=== PATIENT | female | born 2000 | race Caucasian/White ===

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

== ENCOUNTER 2022-03-13 09:40 | Emergency (ER) | payer OTHER, SELFPAY ==
[2022-03-13 09:46] VITALS: BP 116/72; PULSE 90; RESP 16; TEMP 37.6; O2SAT 100
--- NOTE | 2022-03-13 10:10 | ED.URI ---
HPI - URI/Sore Throat General Chief Complaint: Upper Respiratory Infection Stated Complaint: Congestion/Ear Pain/Sore Throat Time Seen by Provider: 03/13/22 10:10 Source: patient and RN notes reviewed Mode of arrival: ambulatory Limitations: no limitations History of Present Illness HPI Narrative: 21-year-old female presented for complaint of left ear pain, sinus drainage and sore throat for 4 days. She has been on vacation swimming and snorkeling for 1 week. Prior. Denies associated fever. Endorses a history of frequent ear infections and tubes. MD elicited complaint: cough Related Data Allergies Allergy/AdvReac Type Severity Reaction Status Date / Time No Known Allergies Allergy Verified 03/13/22 10:01 Review of Systems Review of Systems: CONSTITUTIONAL: Denies malaise, chills, sweats, fever EYES: Denies visual changes, redness, or discharge ENT: Reports rhinorrhea, otalgia CARDIOVASCULAR: Denies chest pain, palpitations, edema RESPIRATORY: Reports post nasal drainage. Denies dyspnea GASTROINTESTINAL: Denies abdominal pain, nausea, vomiting, diarrhea SKIN: Denies rash or itching MUSCULOSKELETAL: Denies Myalgia NEUROLOGIC: Denies headache Exam Narrative: GENERAL: Ill-appearing, nontoxic EYES: conjunctivae clear ENT: Mucous membranes moist. Right TM pearly lal with normal light reflex, left canal erythematous, TM erythematous and bulging with dull light reflex, no tragal tenderness; Oropharynx erythematous without lesions or exudate NECK: Supple. Left anterior cervical lymphadenopathy CHEST: Clear to auscultation, breath sounds equal. HEART: Regular rate and rhythm. No murmur heard. SKIN: Warm, dry, no rash. NEURO: Alert and oriented x3. PSYCH: Normal mood and affect Course Course Emergency Course: Patient is aware of diagnosis, understands and agrees to treatment plan. Anticipatory guidance given. Patient agrees to follow-up as directed and is aware of reasons to seek care at the emergency department. Portions of this record may have been created with voice recognition software Level of Care: Express Care Visit Vital Signs Vital signs: Vital Signs Temperature 99.7 F H 03/13/22 09:46 Pulse Rate 90 03/13/22 09:46 Respiratory Rate 16 03/13/22 09:46 Blood Pressure 116/72 03/13/22 09:46 Pulse Oximetry 100 03/13/22 09:46 Oxygen Delivery Room Air 03/13/22 09:46 Temperature 99.7 F H 03/13/22 09:46 Pulse Rate 90 03/13/22 09:46 Respiratory Rate 16 03/13/22 09:46 Blood Pressure 116/72 03/13/22 09:46 Pulse Oximetry 100 03/13/22 09:46 Oxygen Delivery Room Air 03/13/22 09:46 reviewed MDM - URI/Sore Throat MDM Narrative Medical decision making narrative: Advised supportive measures for AOM and signs/symptoms to go to the ER. Pt is appropriate for outpt treatment and f/u. NKDA Differential Diagnosis Differential diagnosis: Likely upper respiratory infection, sinusitis and viral infection Discharge Plan Discharge Clinical Impression: Otitis media Qualifiers: Otitis media type: suppurative Chronicity: acute Laterality: left Recurrence: non-recurrent Spontaneous tympanic membrane rupture: without spontaneous rupture Qualified Code(s): H66.002 - Acute suppurative otitis media without spontaneous rupture of ear drum, left ear Patient Disposition: Home, Self-Care Condition: Stable Instructions: Antibiotic Form, Earache (ED) Additional Instructions: Take antibiotics as directed. Recommend antihistamine such as Benadryl, Zyrtec or Sarah for sinus congestion Flonase nasal spray, 1 spray in each nostril once daily until symptoms improve Symptomatic treatment includes: rest, fluids, and increase humidity of the air at home. Tylenol 1000mg every 8 hours as needed to reduce fever, pain Please schedule a follow-up visit with your personal physician for further evaluation and treatment within 3-5days. If your symptoms persist, change or worsen significantly, go
== END 2022-03-13 10:22 | disposition home or self-care (01) ==
PROVIDERS: Emergency Provider Nurse Practitioner Family
DX: H66.002 Acute suppurative otitis media without spontaneous rupture of ear drum, left ear (principal)
CPT/HCPCS: 99213; G0463

== ENCOUNTER 2023-08-06 08:20 | Emergency (ER) | payer OTHER, SELFPAY ==
--- NOTE | 2023-08-06 08:27 | ED.FEMALEGU ---
HPI - Female Genitourinary General Chief complaint: Urogenital-Female Stated complaint: Urinary Problem Source: patient and RN notes reviewed History of Present Illness HPI Narrative: 22 yo F presents to urgent care with complaints of burning with urination, cloudy urine and mid, lower, pelvic cramping. Pt states these symptoms have been going on since last night and she has had a UTI before with the same symptoms. Pt also reports a small lump to her right groin area, non-tender, that she states has been there for quite awhile and will vary in size. Denies any vaginal discharge, concern for STIs, flank pain, back pain, vomiting, fevers, or chills. Related Data Allergies Allergy/AdvReac Type Severity Reaction Status Date / Time No Known Allergies Allergy Verified 08/06/23 08:41 Review of Systems Review of Systems: CONSTITUTIONAL: Denies fever, chills, or sweats. EYES: Denies visual changes, redness, or discharge. ENT: Denies otalgia and sore throat CARDIOVASCULAR: Denies chest pain, palpitations, or edema. RESPIRATORY: Denies cough or dyspnea. GASTROINTESTINAL: Denies abdominal pain, nausea, vomiting, or diarrhea. SKIN: Denies rash or itching. MUSCULOSKELETAL: Denies back pain, joint pain, or myalgia. NEUROLOGIC: Denies headache, numbness, or weakness. Pertinent positives per HPI. PMFSH Social History Social History Living arrangements: with family Occupation/Education: student Comments At the time of my signature, I reviewed and agree with the nursing past medical, surgical, social, and family history. There is no relevant family history pertinent to the patient complaint. Exam Narrative: GENERAL: This is a well-nourished, well-developed patient, in no apparent distress. HEAD: normocephalic, atraumatic. EYES: Sclera clear/white. Vision is grossly intact. EARS: External ears normal, auditory canals clear and without drainage, TMs normal without perforation. Hearing grossly intact. NOSE: External nose normal with no obvious nasal discharge, nares without redness, no rhinorrhea. THROAT: Mucous membranes moist, posterior pharynx clear. NECK: Neck supple, non-tender without lymphadenopathy, masses or thyromegaly. CARDIOVASCULAR: Regular rate RESPIRATORY: No respiratory distress GASTROINTESTINAL: Abdomen soft, non-tender, nondistended. Bowel sounds are active. No hepato-splenomegaly, or palpable masses. No guarding. GENITOURINARY: small pea-size, lump to right, labia majora, non-tender, not fluctuant, flesh colored. SKIN: warm, intact with no suspicious lesions or rash, good texture and turgor. NEURO: awake, alert, and oriented to person, place and time. There were no obvious focal neurologic abnormalities. BACK: Nontender without deformity or crepitus. No flank tenderness. Course Course Level of Care: Express Care Visit Vital Signs Vital signs: Vital Signs Temperature 97.2 F L 08/06/23 08:30 Pulse Rate 76 08/06/23 08:30 Respiratory Rate 16 08/06/23 08:30 Blood Pressure 135/81 08/06/23 08:30 Pulse Oximetry 100 08/06/23 08:30 Oxygen Delivery Room Air 08/06/23 08:30 Temperature 97.2 F L 08/06/23 08:30 Pulse Rate 76 08/06/23 08:30 Respiratory Rate 16 08/06/23 08:30 Blood Pressure 135/81 08/06/23 08:30 Pulse Oximetry 100 08/06/23 08:30 Oxygen Delivery Room Air 08/06/23 08:30 reviewed MDM - Female Genitourinary MDM Narrative Medical decision making narrative: We will send a urine culture off to the lab; if the culture identifies an organism that the prescribed antibiotic will not treat, you will receive a phone call from an urgent care staff member and an appropriate antibiotic will be prescribed. -Your symptoms should begin to improve within a day of starting antibiotics. But you should finish all the antibiotic pills you get. Otherwise your infection might come back. -Also recommend: drink more fluid. It m
[2023-08-06 08:30] VITALS: BP 135/81; PULSE 76; RESP 16; TEMP 36.2; O2SAT 100
== END 2023-08-06 08:50 | disposition home or self-care (01) ==
PROVIDERS: Emergency Provider Nurse Practitioner Family; PCP Family Medicine
DX: N39.0 Urinary tract infection, site not specified (principal); N75.0 Cyst of Bartholin's gland
CPT/HCPCS: 81003; 87077; 87086; 87186; 99213; G0463

== ENCOUNTER 2023-11-08 15:27 | Emergency (ER) | payer OTHER, SELFPAY ==
--- NOTE | ~2023-11-08 | XR_ITS ---
EXAMINATION: XR chest 2V Exam Date/Time: 11/08/2023 17:00 CAGE FIGHTER HISTORY: cough elevated HR Comparison: None. RESULT: Lines, tubes, and devices: None. Lungs and pleura: Ill-defined patchy peribronchovascular groundglass opacities in the right lower lo be. Cardiomediastinal silhouette: Stable. Other: No acute osseous or upper abdominal finding. Mild spinal asymmetry. IMPRESSION: Right lower lobe opacities may represent infection in the appropriate clinical context. Reviewed, dictated and finalized at location K. FIGHTER
[2023-11-08 15:31] VITALS: BP 132/82; PULSE 112; RESP 16; TEMP 37.5; O2SAT 100
--- NOTE | 2023-11-08 16:47 | ED.GENADULT ---
HPI - General Adult General Chief complaint: Upper Respiratory Infection Stated complaint: throat/trouble breathing Source: patient Mode of arrival: ambulatory Limitations: no limitations History of Present Illness HPI narrative: Patient presents for evaluation of sick symptoms. She developed a burning sensation in her chest with nonproductive cough and mild SOLANO 2 days ago. Yesterday she developed a sore throat and chills. No fever, nausea, vomiting, diarrhea. She took some DayQuil for her symptoms. She does not smoke. Her boyfriend was recently diagnosed with bronchitis. She is not on exogenous estrogen. No personal or family history of DVT/PE. No leg swelling or redness. Related Data Allergies Allergy/AdvReac Type Severity Reaction Status Date / Time No Known Allergies Allergy Verified 08/06/23 08:41 Review of Systems Review of Systems: CONSTITUTIONAL: Denies fever, chills, or sweats. EYES: Denies visual changes, redness, or discharge. ENT: Reports sore throat. Denies rhinorrhea, congestion, or otalgia. CARDIOVASCULAR: Reports mild sensation that her heart rate is elevated. RESPIRATORY: Reports nonproductive cough, burning sensation in her chest and SOLANO GASTROINTESTINAL: Denies abdominal pain, nausea, vomiting, or diarrhea. GENITOURINARY: Denies dysuria or hematuria. SKIN: Denies rash or itching. MUSCULOSKELETAL: Denies back pain, joint pain, or myalgia. NEUROLOGIC: Denies headache, numbness, dizziness, or weakness. PSYCHIATRIC: Denies anxiety or depression. PMFSH Past Medical History Medical History No pertinent past medical history Family History Family History (Updated 11/08/23 @ 17:00 by Adonis German, GLUE MOUNTER OPERATOR, ) Mother Family history non-contributory Social History Social History Smoking status: Never smoker Substance use: never Living arrangements: with family Occupation/Education: student Gender identity (if verbalized by the patient): Female Sexual Orientation (if Verbalized by the Patient): Straight or Heterosexual Spiritual care concerns: No Exam Narrative: GENERAL: Well-appearing, well-nourished, and in no acute distress. HEAD: Normocephalic, atraumatic. EYES: PERRLA and EOMI. ENT: Nares clear, no rhinorrhea or epistaxis. Mucous membranes moist. Oropharynx without tonsillar hypertrophy exudate or other lesions. Bilateral TMs pearly lal nonbulging NECK: Supple. No adenopathy or masses. No carotid bruits or JVD CHEST: Clear to auscultation. No respiratory distress. No wheezes rales or rhonchi HEART: Regular rhythm. Rate 118. No murmur heard. Normal peripheral pulses. ABDOMEN: Soft, nontender, nondistended, normal active bowel sounds. EXTREMITIES: Normal range of motion. No edema. SKIN: Warm, dry, no rash. NEURO: No focal deficits. Alert and oriented x3. PSYCH: Normal mood and affect. Course Course Emergency Course: This is a 22-year-old female who presented for evaluation of sore throat and cough with a burning sensation in her chest. Strep, COVID, influenza were negative. I requested that the nurse recheck her heart rate at the time of discharge and she had a rate of 128. At that time patient reported a sensation of racing heart rate. EKG and chest x-ray were obtained. Chest x-ray consistent with right lower lobe pneumonia. Rate on EKG was only 102 however I reassessed patient and her heart rate was 130. I discussed findings with patient and her mother and was told that she has a history of anemia and was previously on iron supplement but had been off for a few years. Her heart rate remained in the high 120s to 130s so I discussed sending her to the ER for further evaluation and labs. She and her mother were in agreement with plans for transfer. [facility] I contacted [facility] a
[2023-11-08 16:50] VITALS: PULSE 128
--- NOTE | 2023-11-08 16:57 | ECG_ITS ---
Measurements Intervals [place] Rate: 102 P: 30 UT: 132 QRS: 31 QRSD: 77 T: 13 QT: 310 QTc: 405 Interpretive Statements SINUS TACHYCARDIA NO PREVIOUS ECG AVAILABLE FOR COMPARISON Electronically Signed On 11-09-2023 16:21:41 [employer] by Alverto Martinez M.D.
[2023-11-08 17:45] VITALS: PULSE 130
== END 2023-11-08 17:52 | disposition short-term general hospital (02) ==
PROVIDERS: Emergency Provider Nurse Practitioner; PCP Family Medicine
DX: J18.1 Lobar pneumonia, unspecified organism (principal); R00.0 Tachycardia, unspecified; Z20.822 Contact with and (suspected) exposure to COVID-19
CPT/HCPCS: 71046; 87081; 87426; 87804; 87880; 93005; 99213; G0463

== ENCOUNTER 2023-11-08 18:18 | Emergency (ER) | payer OTHER, SELFPAY ==
[2023-11-08 18:47] VITALS: BP 135/87; PULSE 134; RESP 18; TEMP 37.2; O2SAT 100
[2023-11-08 19:17] VITALS: BP 128/78; PULSE 133; RESP 21; TEMP 38.5; O2SAT 100
--- NOTE | 2023-11-08 19:17 | ECG_ITS ---
Measurements Intervals [place] Rate: 121 P: 35 CA: 135 QRS: 24 QRSD: 82 T: 24 QT: 295 QTc: 419 Interpretive Statements SINUS TACHYCARDIA COMPARED TO ECG 11/08/2023 17:09:23 NO SIGNIFICANT CHANGES Electronically Signed On 11-09-2023 16:24:24 [place] by Alverto Martinez M.D.
[2023-11-08] MEDS: ACETAMINOPHEN 500 MG TABLET 1000 MG PO (19:47)
[2023-11-08 19:49] LABS: Basophils Percent Auto 0.4 % (0.2-1.2); Eosinophils Percent Auto 0.4 % (0-4.4); Hematocrit 40.1 % (37.0-47.0); Hemoglobin 13.9 g/dL (12.0-15.0); Immature Granulocyte Absolute 0.02 K/mm3 (0.00-0.031); Immature Granulocyte Percent A 0.3 % (0-0.5); Immature Platelet Fraction Pct 4.6 % (0.9-11.2); Lymphocytes Absolute Auto 0.31 K/mm3 (0.9-3.2); Lymphocytes Percent Auto 3.9 % (18.3-44.2); Mean Corpuscular HGB Conc 34.7 g/dl (32-36); Mean Corpuscular Hemoglobin 29.3 pg (26-34); Mean Corpuscular Volume 84.6 fl (80-100); Mean Platelet Volume 10.6 fl (7.4-10.4); Monocytes Absolute Auto 0.4 K/mm3 (0.1-0.6); Monocytes Percent Auto 5.5 % (2.6-8.5); Neutrophils Absolute Auto 7.1 K/mm3 (1.3-6.7); Neutrophils Percent Auto 89.5 % (45.5-73.1); Platelet Count Result 141 k/mm3 (150-375); Red Blood Count 4.74 M/mm3 (4.2-5.4); Red Cell Distribution Width 12.1 % (11.5-14.5); White Blood Count 7.9 K/mm3 (4.5-10.0)
[2023-11-08] MEDS: SODIUM CHLORIDE 0.9% IV 1,000 ML 999 ML IV CONT ×2 (19:49)
[2023-11-08 19:57] LABS: Lactic Acid Reflex 0.9 mmol/L (0.7-2.0)
[2023-11-08 20:08] LABS: Alanine Aminotransferase 17 U/L (6-35); Albumin Level 4.5 g/dL (3.5-5.1); Alkaline Phosphatase 61 U/L (38-126); Anion Gap 7 mmol/L (8-16); Aspartate Amino Transferase 32 U/L (14-36); Bilirubin,Total 0.7 mg/dL (0.2-1.3); Blood Urea Nitrogen 9 mg/dL (7-17); Carbon Dioxide 22 mmol/L (22-30); Chloride 105 mmol/L (98-107); Estimated CRCL calculation 99 ml/min; Estimated Glomerular Filt Rate > 60; Glucose 98 mg/dL (65-110); Sodium 134 mmol/L (137-145)
[2023-11-08 20:10] LABS: Influenza A QL RT-PCR Positive (Negative); Influenza B QL RT-PCR Negative (Negative); RSV RNA, RT-PCR Negative (Negative); SARS-CoV-2 RNA PCR Negative (Negative)
--- NOTE | 2023-11-08 20:57 | ED.GENADULT ---
HPI - General Adult General Chief complaint: Recheck/Abnormal Lab/Rx Stated complaint: ST/SOB from UC with tachycardia Time Seen by Provider: 11/08/23 19:11 History of Present Illness HPI narrative: Patient 22-year-old female who presents emergency department with chief complaint pneumonia and tachycardia. Patient reports that she has had a sore throat and cough for the last several days and reports she was seen in urgent care diagnosed with a right lower lobe pneumonia the patient states she was negative for strep and negative for COVID patient was sent to the emergency department after she had persistent tachycardia with heart rate in the 120s to 130s patient reports that she has feels generally unwell at this time Related Data Allergies Allergy/AdvReac Type Severity Reaction Status Date / Time No Known Allergies Allergy Verified 11/08/23 18:19 Review of Systems Review of Systems: A 10 system review of systems was completed on the patient and is negative except for what is stated in the HPI. Nursing and ancillary documentation was reviewed. PMFSH Past Medical History Medical History No pertinent past medical history Family History Family History Mother Family history non-contributory Social History Social History Smoking status: Never smoker Substance use: never Living arrangements: with family Occupation/Education: student Gender identity (if verbalized by the patient): Female Sexual Orientation (if Verbalized by the Patient): Straight or Heterosexual Spiritual care concerns: No Exam Narrative: GENERAL: Well-appearing, well-nourished, and in no acute distress. HEAD: Normocephalic, atraumatic. EYES: PERRLA and EOMI. ENT: Nares clear, no rhinorrhea or epistaxis. Mucous membranes moist. NECK: Supple. CHEST: Clear to auscultation. No respiratory distress. HEART: Tachycardic rate and rhythm. No murmur heard. Normal peripheral pulses. ABDOMEN: Soft, nontender, nondistended, normal active bowel sounds. EXTREMITIES: Normal range of motion. No edema. SKIN: Warm, dry, no rash. NEURO: No focal deficits. Alert and oriented x3. PSYCH: Normal mood and affect. Course Vital Signs Vital signs: Vital Signs Temperature 37.2 C 11/08/23 18:47 Pulse Rate 134 H 11/08/23 18:47 Respiratory Rate 18 11/08/23 18:47 Blood Pressure 135/87 11/08/23 18:47 Pulse Oximetry 100 11/08/23 18:47 Oxygen Delivery Room Air 11/08/23 18:47 Temperature 37.6 C H 11/08/23 20:58 Pulse Rate 117 H 11/08/23 21:48 Respiratory Rate 12 11/08/23 21:48 Blood Pressure 112/75 11/08/23 21:48 Pulse Oximetry 100 11/08/23 21:48 Oxygen Delivery Room Air 11/08/23 18:47 Medical Decision Making MDM Narrative Medical decision making narrative: Differential diagnosis includes pneumonia, sepsis, viral illness, dehydration Laboratory studies were obtained on the patient which showed normal white count 7.9 lactic acid also normal at 0.9 influenza was positive for influenza A RSV was negative COVID is negative chest x-ray showed right lower lobe infiltrate. Patient received 30 per kilos boluses and heart rate has come down substantially. Patient was given a IV dose of Rocephin and IV dose of Zithromax patient be discharged with prescription for cefdinir and Zithromax and also Tamiflu. Consideration was made for admission since the patient was significantly tachycardic but that has subsequently improved and patient is feeling better and would like to try outpatient therapy Vital Signs Vital Signs: Vital Signs Temperature 37.2 C 11/08/23 18:47 Pulse Rate 134 H 11/08/23 18:47 Respiratory Rate 18 11/08/23 18:47 Blood Pressure 135/87 11/08/23 18:47 Pulse Oximetry 100 11/08/23 18:47 Oxygen [place]
[2023-11-08 20:58] VITALS: PULSE 128; RESP 22; TEMP 37.6; O2SAT 100
[2023-11-08] MEDS: SODIUM CHLORIDE 0.9% IV 500 ML 999 ML IV CONT (21:05)
[2023-11-08] MEDS: AZITHROMYCIN 500 MG/NS 250 ML 500 MG/250 ML BAG 250 MG IVPB (21:47)
[2023-11-08 21:48] VITALS: BP 112/75; PULSE 117; RESP 12; O2SAT 100
[2023-11-08 23:29] VITALS: TEMP 37.6
[2023-11-08] MEDS: OSELTAMIVIR PHOSPHATE 75 MG CAPSULE PO (23:29)
== END 2023-11-08 23:40 | disposition home or self-care (01) ==
PROVIDERS: Emergency Provider Emergency Medicine; PCP Family Medicine
DX: J10.00 Influenza due to other identified influenza virus with unspecified type of pneumonia (principal)
CPT/HCPCS: 36415; 71046; 80053; 83605; 85025; 85055; 87040; 87081; 87426; 87637; 87804; 87880; 93005; 96361; 96365; 96367; 99284; A9270; J0456; J0696; J7030; J7040

== ENCOUNTER 2024-03-30 13:09 | Emergency (ER) | payer OTHER, SELFPAY ==
[2024-03-30 13:17] VITALS: BP 138/82; PULSE 73; RESP 16; TEMP 36.4; O2SAT 100
--- NOTE | 2024-03-30 14:02 | ED.EAR ---
HPI - Ear Problem General Chief complaint: Ear Stated complaint: Right ear pain Time Seen by Provider: 03/30/24 14:13 Source: patient, RN notes reviewed and old records reviewed Mode of arrival: ambulatory Limitations: no limitations History of Present Illness HPI Narrative: 23-year-old female to Express Care for complaints of right ear pain and fullness for 2 days. Patient sources history of tubes as a child as well as having adenoids removed as a child. Patient denies headache, sore throat, cough, fever, allergies, sinus pain, nasal congestion, shortness of breath. Patient has not attempted to treat at home. Patient able to tolerate fluids by mouth. Respirations even and nonlabored. Patient in no acute distress. Related Data Allergies Allergy/AdvReac Type Severity Reaction Status Date / Time No Known Allergies Allergy Verified 11/08/23 18:19 Review of Systems Review of Systems: All systems reviewed & are unremarkable except as noted in HPI and below Constitutional: Constitutional: Reports no additional constitutional complaints Eyes: Eyes: Reports no additional eye complaints ENT: Reports as per HPI and Reports otalgia ( right) Cardiovascular: Cardiovascular: Reports no additional cardiovascular complaints, Denies chest pain and Denies dyspnea Respiratory: Respiratory: Reports no additional respiratory complaints, Denies cough and Denies dyspnea Musculoskeletal: Musculoskeletal: Reports no additional musculoskeletal complaints Neurologic: Reports system reviewed and no additional complaints, except as documented Psychiatric: Psychiatric: Reports no additional psychiatric complaints PMFSH Past Medical History Medical History No pertinent past medical history Family History Family History Mother Family history non-contributory Social History Social History Smoking status: Never smoker Substance use: never Living arrangements: with family Occupation/Education: student Gender identity (if verbalized by the patient): Female Sexual Orientation (if Verbalized by the Patient): Straight or Heterosexual Spiritual care concerns: No Comments At the time of my signature, I reviewed and agree with the nursing past medical, surgical, social, and family history. There is no relevant family history pertinent to the patient complaint. Exam Const: General: cooperative, healthy appearing, no acute distress, alert, uncomfortable and well nourished Nutritional Appearance: well nourished Orientation/consciousness: patient oriented x3 Limitations: no limitations HENMT: Head: normal to inspection Ears: external ears normal and TM abnormal bulging on the right, dull on the right, erythematous on the right and with fluid behind the TM on the right Face/Nose/Sinus: Normal external nose present, Normal nares present, normal facial exam, No erythema and No edema Face and sinus: normal facial exam, no erythema and no edema Mouth: Yes Normal oral and palatal mucosa present Eyes: General: appearance normal, both eyes and all related structures Neck: Neck: normal visual inspection, full ROM and no meningeal signs Lymphatic: no lymphadenopathy noted and no lymphedema noted Chest: Chest palpation & inspection: normal inspection of the chest Resp: Effort & Inspection: normal respiratory effort and able to speak in complete sentences Auscultation: clear to auscultation bilaterally Cardio: Jugular venous distension: no JVD Rate: regular rate Rhythm: regular rhythm Back/Spine/Pelvis: Cervical Spine: cervical ROM normal Skin: General skin exam: normal color, no rashes or lesions noted and turgor normal Neuro: General: patient oriented x3, gait normal, moves all extremities and no meningeal signs Speech: normal speech Gait exam (Neuro)
== END 2024-03-30 14:16 | disposition home or self-care (01) ==
PROVIDERS: Emergency Provider Nurse Practitioner Family; PCP Family Medicine
DX: H66.91 Otitis media, unspecified, right ear (principal)
CPT/HCPCS: 99213; G0463

== ENCOUNTER 2024-08-15 16:25 | Emergency (ER) | payer OTHER, SELFPAY ==
[2024-08-15 16:28] VITALS: BP 144/84; PULSE 104; RESP 16; TEMP 36.7; O2SAT 100
--- NOTE | 2024-08-15 16:54 | ED_ITS ---
HPI - URI/Sore Throat General Chief Complaint: Upper Respiratory Infection Stated Complaint: drainage/throat/tight chest Time Seen by Provider: 08/15/24 16:54 Source: patient and RN notes reviewed Mode of arrival: ambulatory Limitations: no limitations History of Present Illness HPI Narrative: 23-year-old female presents with concern for 3 day history of cough, nasal drainage, sore throat. Reports symptoms started 3 days ago, she was seen last week in urgent care for chest discomfort but at that time did not have cough, runny nose, stuffy nose, sore throat. She also reports body aches, chills, fever, sweats. MD elicited complaint: cough, sore throat and nasal congestion Related Data Allergies Allergy/AdvReac Type Severity Reaction Status Date / Time No Known Allergies Allergy Verified 11/08/23 18:19 Review of Systems Review of Systems: CONSTITUTIONAL: Reports malaise, chills, sweats, or fever. EYES: Denies visual changes, redness, or discharge. ENT: Reports rhinorrhea, congestion, and sore throat. CARDIOVASCULAR: Denies chest pain, palpitations, or edema. RESPIRATORY: Reports cough. Denies dyspnea. GASTROINTESTINAL: Denies abdominal pain, nausea, vomiting, diarrhea SKIN: Denies rash or itching. MUSCULOSKELETAL: Reports myalgia. NEUROLOGIC: Denies headache. All systems reviewed & are unremarkable except as noted in HPI and below PMFSH Past Medical History Medical History No pertinent past medical history Family History Family History Mother Family history non-contributory Social History Social History Smoking status: Never smoker Substance use: never Living arrangements: with family Occupation/Education: student Gender identity (if verbalized by the patient): Female Sexual Orientation (if Verbalized by the Patient): Straight or Heterosexual Spiritual care concerns: No Comments At time of signature, agree with nursing past medical, surgical, social and family history. There is no relevant family history pertinent to the presenting complaint Exam Narrative: GENERAL: Well-appearing, well-nourished, and in no acute distress. HEAD: Normocephalic EYES: PERRLA, conjunctivae clear ENT: Nares clear. Mucous membranes moist. TM pearly lal with dull light reflex bilaterally; no tragal tenderness. Oropharynx not erythematous without lesions. Tonsils not enlarged and without exudate, no drooling, no hoarseness, no trismus, uvula midline. NECK: Supple. No lymphadenopathy CHEST: Clear to auscultation, breath sounds equal. No wheezing, rhonchi, rales, or stridor. No respiratory distress, speaks in full sentences. HEART: Regular rate and rhythm. No murmur heard. SKIN: Warm, dry, no rash. NEURO: Alert and oriented x3. PSYCH: Normal mood and affect Course Course Emergency Course: Patient is aware of diagnosis, understands and agrees to treatment plan. Anticipatory guidance given. Patient agrees to follow-up as directed and is aware of reasons to seek care at the emergency department. Portions of this record may have been created with voice recognition software Level of Care: Express Care Visit Vital Signs Vital signs: Vital Signs Temperature 98.1 F 08/15/24 16:28 Pulse Rate 104 H 08/15/24 16:28 Respiratory Rate 16 08/15/24 16:28 Blood Pressure 144/84 H 08/15/24 16:28 Pulse Oximetry 100 08/15/24 16:28 Oxygen Delivery Room Air 08/15/24 16:28 Temperature 98.1 F 08/15/24 16:28 Pulse Rate 104 H 08/15/24 16:28 Respiratory Rate 16 08/15/24 16:28 Blood Pressure 144/84 H 08/15/24 16:28 Pulse Oximetry 100 08/15/24 16:28 Oxygen Delivery Room Air 08/15/24 16:28 Reviewed. MDM - URI/Sore Throat MDM Narrative Medical decision making narrative: Differential diagnosis considered: Dominguez virus, strep pharyngitis, allergic rhinitis, upper respiratory tract infection, sinusitis, rhinosinusitis, nasopharyngitis. viral pharyngitis, otitis media, otitis externa, pneumonia, bronchitis, viral cough syndrome, viral syndrome, and influenza. Exam findings show no acute concerns or changes; patient is non-toxic appearing and is in no distress. Patient is appropriate for outpatient treatment and follow-up. Lab Data Attestation: I reviewed the patient's lab results. Critical Care Time Critical Care Time Critical Care Time: No Discharge Plan Discharge Clinical Impression: Upper respiratory infection Patient Disposition: Home, Self-Care Condition: Stable Instructions: Upper Respiratory Infection (ED) Additional Instructions: Your rapid COVID and flu tests are negative Your rapid strep swab was negative today at [facility]. A throat culture will be sent to the laboratory for further testing. If the test is positive, you will receive a phone call within 48 hours and an appropriate antibiotic will be initiated at that time. Your symptoms are likely due to a viral illness, which is not treated with antibiotics. Viral symptoms can be present for up to a few weeks. -Alternate Tylenol and Motrin per package directions for fever or pain. -Antihistamine medication such as Benadryl at night and Zyrtec during the day can help improve symptoms. -Eat and drink things that are easy to swallow, like tea or soup, or popsicles to suck on. -Oral rinses such as: Salt water gargles and/or may use topical anesthetic (eg. Chloraseptic spray) or lozenges to relieve dryness or throat pain). -Frequent hand washing or hand trailer mechanic is one of the best ways to prevent spread of infection. -Follow up with primary care provider in 2-3 days if condition is not improving; or seek ER visit if you have trouble breathing, cannot drink enough fluids, have muffled voice, difficulty opening your mouth, or severe swelling. Prescriptions: New pseudoephedrine HCl [12 Hour Decongestant] 120 mg tablet extended release 120 mg PO Q12H PRN (Reason: nasal congestion) Qty: 20 0RF dextromethorphan-guaifenesin [Mucinex DM] 60-1,200 mg tablet extended release 12 hr 1 tablet PO Q12H Qty: 12 0RF Follow-up/Referrals: Lake,Geovanna Mac MD [Primary Care Provider] - Stand Alone Forms: Work/School Release IP Time of Disposition: 17:21
[2024-08-15 17:20] LABS: EDCOVIDSCREEN Negative (Negative)
[2024-08-15 17:21] LABS: EDINFLUASCREEN Negative (Negative); EDINFLUBSCREEN Negative (Negative); EDSTREPNEGPOS1 Negative (Negative)
== END 2024-08-15 17:24 | disposition home or self-care (01) ==
PROVIDERS: Emergency Provider Nurse Practitioner; PCP Family Medicine
DX: J06.9 Acute upper respiratory infection, unspecified (principal); Z20.822 Contact with and (suspected) exposure to COVID-19
CPT/HCPCS: 87081; 87426; 87804; 87880; 99213; G0463

== ENCOUNTER 2024-08-15 17:40 | Emergency (ER) | payer OTHER, SELFPAY ==
--- NOTE | ~2024-08-15 | XR_ITS ---
XR chest 2V Ordering provider: Renita Castellanos NP History: 23 years Female with . Cough . Comparison: None. FINDINGS: MEDIASTINUM: The cardiac silhouette is not enlarged. LUNGS: No infiltrates, effusions or pneumothorax. OTHER: No free air under the diaphragm. IMPRESSION: No acute cardiopulmonary pathology. Reviewed, dictated and finalized at location A. [facility] [employer]
--- NOTE | 2024-08-15 17:45 | ED_ITS ---
HPI - URI/Sore Throat General Chief Complaint: Upper Respiratory Infection Stated Complaint: chest congestion-wants x ray Time Seen by Provider: 08/15/24 18:18 Source: patient and RN notes reviewed Mode of arrival: ambulatory Limitations: no limitations History of Present Illness HPI Narrative: Patient was seen here within the last few and was discharged with the diagnosis of upper respiratory infection. Patient left in and her mother called back concerned that she did not get a chest x-ray. Patient did reports she is ?prone to pneumonia? and would like a chest x-ray. MD elicited complaint: cough Related Data Allergies Allergy/AdvReac Type Severity Reaction Status Date / Time No Known Allergies Allergy Verified 11/08/23 18:19 Review of Systems Review of Systems: CONSTITUTIONAL: Reports malaise, chills, sweats, fever. EYES: Denies visual changes, redness, or discharge. ENT: Reports rhinorrhea, congestion, and sore throat. CARDIOVASCULAR: Denies chest pain, palpitations, or edema. RESPIRATORY: Reports cough. Denies dyspnea. GASTROINTESTINAL: Denies abdominal pain, nausea, vomiting, diarrhea SKIN: Denies rash or itching. MUSCULOSKELETAL: Denies myalgia. NEUROLOGIC: Reports headache. All systems reviewed & are unremarkable except as noted in HPI and below PMFSH Past Medical History Medical History No pertinent past medical history Family History Family History Mother Family history non-contributory Social History Social History Smoking status: Never smoker Substance use: never Living arrangements: with family Occupation/Education: student Gender identity (if verbalized by the patient): Female Sexual Orientation (if Verbalized by the Patient): Straight or Heterosexual Spiritual care concerns: No Comments At time of signature, agree with nursing past medical, surgical, social and family history. There is no relevant family history pertinent to the presenting complaint Exam Narrative: GENERAL: Well-appearing, well-nourished, and in no acute distress. HEAD: Normocephalic EYES: PERRLA, conjunctivae clear ENT: Nares clear. Mucous membranes moist. TM pearly lal with dull light reflex bilaterally; no tragal tenderness. Oropharynx not erythematous without lesions. Tonsils not enlarged and without exudate, no drooling, no hoarseness, no trismus, uvula midline. NECK: Supple. No lymphadenopathy CHEST: Clear to auscultation, breath sounds equal. No wheezing, rhonchi, rales, or stridor. No respiratory distress, speaks in full sentences. HEART: Regular rate and rhythm. No murmur heard. SKIN: Warm, dry, no rash. NEURO: Alert and oriented x3. PSYCH: Normal mood and affect Course Course Emergency Course: On patient's previous visit I explained to her that her lungs were clear and I had no concern for pneumonia, however to ease patient's concerns we will do a chest x-ray. Patient is aware of diagnosis, understands and agrees to treatment plan. Anticipatory guidance given. Patient agrees to follow-up as directed and is aware of reasons to seek care at the emergency department. Portions of this record may have been created with voice recognition software Level of Care: Express Care Visit Vital Signs Vital signs: Reviewed. MDM - URI/Sore Throat MDM Narrative Medical decision making narrative: Differential diagnosis considered: Dominguez virus, strep pharyngitis, allergic rhinitis, upper respiratory tract infection, sinusitis, rhinosinusitis, nasopharyngitis. viral pharyngitis, otitis media, otitis externa, pneumonia, bronchitis, viral cough syndrome, viral syndrome, and influenza. Exam findings show no acute concerns or changes; patient is non-toxic appearing and is in no distress. Patient is appropriate for outpatient treatment and follow-up. Lab Data Attestation: I reviewed the patient's lab results. Imaging Data My impression: Images reviewed, interpreted by radiologist, agree, see report. Radiologist's impression: XR chest 2V Ordering provider: Renita Castellanos NP History: 23 years Female with . Cough . Comparison: None. FINDINGS: MEDIASTINUM: The cardiac silhouette is not enlarged. LUNGS: No infiltrates, effusions or pneumothorax. OTHER: No free air under the diaphragm. IMPRESSION: No acute cardiopulmonary pathology. Critical Care Time Critical Care Time Critical Care Time: No Discharge Plan Discharge Clinical Impression: Upper respiratory infection Patient Disposition: Home, Self-Care Condition: Stable Instructions: Upper Respiratory Infection (ED) Additional Instructions: Your chest x-ray is normal. 1) Please follow-up with your primary care doctor in the next 1-2 days. 2) If yo u have any worsening of symptoms or any other urgent concerns please go to the ER. 3) Please continue taking your home medications as usual. 4) Please read and follow information included in discharge instructions. Prescriptions: No Action pseudoephedrine HCl [12 Hour Decongestant] 120 mg tablet extended release 120 mg PO Q12H PRN (Reason: nasal congestion) Qty: 20 0RF dextromethorphan-guaifenesin [Mucinex DM] 60-1,200 mg tablet extended release 12 hr 1 tablet PO Q12H Qty: 12 0RF Follow-up/Referrals: Lake,Geovanna Mac MD [Primary Care Provider] - Time of Disposition: 18:25
[2024-08-15 17:48] VITALS: BP 161/84; PULSE 98; RESP 16; TEMP 37.1; O2SAT 100
== END 2024-08-15 18:29 | disposition home or self-care (01) ==
PROVIDERS: Emergency Provider Nurse Practitioner; PCP Family Medicine
DX: J06.9 Acute upper respiratory infection, unspecified (principal)
CPT/HCPCS: 71046; 99213; G0463